=== PATIENT | female | born 1960 | race African-American/Black ===

== ENCOUNTER → 2017-10-16 | Outpatient (CLI) | payer BC ==
--- NOTE | 2017-10-21 14:46 | Pulmonary Function Test ---
Pulmonary Function Test Date of Procedure:: 10/16/17 INDICATION:: Pulmonary hypertension Referring Provider: Dr. Wells Director Packaging: Janel Thompson BOOK REVIEWER - Report Spirometry: FVC 3.28 L 101% FEV1 2.70 L 103% FEV1/FVC % 83 predicted 83 FEF 25-75% 3.19 L 112% Lung Volume: Total lung capacity 4.92 L 96% Vital capacity 3.25 L 101% Inspiratory capacity 2.80 L FRC N2 2.12 L 119% ERV 0.32 RV 1.67 L 89% RV/TLC % 34 predicted 36 Diffusion Capactity: Diffusion capacity 23.7 79% DLCO/VA 4.80 121% Impression: Normal spirometry. No restrictive ventilatory defect. No hyperinflation or air trapping. Normal decrease in diffusion capacity.
== END ==
LOC: RT 13:17
PROVIDERS: ATTEND Internal Medicine Rheumatology
DX: I27.0 Primary pulmonary hypertension (principal); M35.9 Systemic involvement of connective tissue, unspecified; M06.4 Inflammatory polyarthropathy; E66.01 Morbid (severe) obesity due to excess calories; G47.33 Obstructive sleep apnea (adult) (pediatric); M51.9 Unspecified thoracic, thoracolumbar and lumbosacral intervertebral disc disorder; L93.1 Subacute cutaneous lupus erythematosus
CPT/HCPCS: 94010; 94727; 94729

== ENCOUNTER → 2017-10-23 | Outpatient (CLI) | payer BC ==
--- NOTE | 2017-10-23 12:31 | XCELERA REPORT ---
[address] [address] Transthoracic Echocardiogram Report Name: SUSAN HARLEY Age: 57 yrs Gender: Female : 1960 Patient Status: Outpatient Patient Location: [facility] Study Date: 10/23/2017 09:22 AM Procedure: A complete two-dimensional transthoracic echocardiogram was performed (2D, M-mode, spectral and color flow Doppler). The study was technically adequate with some images being suboptimal in quality. Reason For Study: HTN Ordering Physician: TERRY HERNANDEZ Performed By: Mony Figueroa Interpretation Summary Best estimated RVSP is approximately 40-45 mm/Hg. The left ventricular ejection fraction is normal. Doppler measurements suggest pseudonormalized left ventricular relaxation, which is associated with grade II/IV or mild to moderate diastolic dysfunction The left ventricle is grossly normal size. There is mild concentric left ventricular hypertrophy. Wall motion cannot be accurately commented on, but no definite regional wall motion abnormalities noted. The right ventricle is mildly dilated. The right ventricle appears to be hypertrophied The right ventricular systolic function is normal. The right atrium is normal in size The left atrium is mildly dilated. There is a trace amount of mitral regurgitation There is no mitral valve stenosis. No aortic regurgitation is present. There is no aortic valve stenosis There is a mild amount of tricuspid regurgitation There is mild pulmonary hypertension by echo The aortic root is not well visualized but is probably normal size. The inferior vena cava was not well visualized There is no pericardial effusion. MMode/2D Measurements & Calculations RVDd: 3.6 cm LVIDd: 5.8 cm FS: 39.4 % Ao root diam: 2.9 cm IVSd: 0.96 cm LVIDs: 3.5 cm EDV(Teich): 166.1 ml Ao root area: 6.4 cm2 LVPWd: 1.1 cm ESV(Teich): 51.2 ml EF(Teich): 69.2 % LVOT diam: 1.7 cm LVOT area: 2.3 cm2 Doppler Measurements & Calculations MV E max araceli: MV dec slope: Ao V2 max: LV V1 max P.8 cm/sec 135.6 cm/sec 3.4 mmHg MV A max araceli: 389.6 cm/sec2 Ao max PG: LV V1 max: 66.1 cm/sec MV dec time: 0.22 sec7.4 mmHg 91.8 cm/sec MV E/A: 1.3 ELVIN(V,D): 1.5 cm2 PA V2 max: TR max araceli: 80.9 cm/sec 307.7 cm/sec PA max P.6 mmHg TR max P.9 mmHg Left Ventricle The left ventricle is grossly normal size. There is mild concentric left ventricular hypertrophy. The left ventricular ejection fraction is normal. Doppler measurements suggest pseudonormalized left ventricular relaxation, which is associated with grade II/IV or mild to moderate diastolic dysfunction. Wall motion cannot be accurately commented on, but no definite regional wall motion abnormalities noted. Right Ventricle The right ventricle is mildly dilated. The right ventricle appears to be hypertrophied. The right ventricular systolic function is normal. Atria The right atrium is normal in size. The left atrium is mildly dilated. Interarterial septum not well visualized and not well dopplered. Cannot comment on ASD/PFO presence. Mitral Valve The mitral valve is grossly normal. There is no mitral valve stenosis. There is a trace amount of mitral regurgitation. Aortic Valve The aortic valve is grossly normal. There is no aortic valve stenosis. No aortic regurgitation is present. Tricuspid Valve The tricuspid valve is not well visualized, but is grossly normal. There is no tricuspid stenosis. There is a mild amount of tricuspid regurgitation. There is mild pulmonary hypertension by echo. Best estimated RVSP is approximately 40-45 mm/Hg. Pulmonic Valve The pulmonic valve is not well visualized. Great Vessels The aortic root is not well visualized but is probably normal size. The inferior vena cava was not well visualized. Effusions There is no pericardial effusion. : TERRY HERNANDEZ > Idania Constantino
== END ==
LOC: SP 09:08
PROVIDERS: ATTEND Internal Medicine Rheumatology
DX: I10 Essential (primary) hypertension (principal); M35.9 Systemic involvement of connective tissue, unspecified; M06.4 Inflammatory polyarthropathy; E66.01 Morbid (severe) obesity due to excess calories; G47.33 Obstructive sleep apnea (adult) (pediatric)
CPT/HCPCS: 93306

== ENCOUNTER → 2019-10-13 | Outpatient (CLI) | payer BC ==
--- NOTE | 2019-10-14 21:24 | XCELERA REPORT ---
[address] [address] Transthoracic Echocardiogram Report Name: SUSAN HARLEY Age: 59 yrs Gender: Female : 1960 Patient Status: Outpatient Patient Location: [facility] Study Date: 10/13/2019 02:03 PM Height: 65 in Weight: 300 lb BSA: 2.4 m2 Procedure: A two-dimensional transthoracic echocardiogram with color flow and Doppler was performed. Study Quality: Fair. Reason For Study: PULMONARY HTN History: PULMONARY HTN. Ordering Physician: TERRY HERNANDEZ Performed By: Zoran Yung Interpretation Summary The left ventricle is normal in size. LV EF is 65% Left ventricular systolic function is normal. There is normal left ventricular wall thickness. Doppler measurements suggest impaired left ventricular relaxation, which is associated with grade I/IV or mild diastolic dysfunction There is no thrombus. No ASD ,VSD , or PFO seen. The right ventricle is normal in size and function. The right ventricle is not well visualized secondary to technical limitations The right atrium is normal. The left atrial size is normal. There is no evidence of mitral valve prolapse. There is no vegetation seen on the mitral valve. There is no mitral valve stenosis. There is a trace amount of mitral regurgitation There is no aortic valve stenosis There is no LVOT obstruction. No aortic regurgitation is present. There is no aortic valvular vegetation. There is no tricuspid stenosis. There is a trace amount of tricuspid regurgitation Upper normal RVSP to early mild pulmonary hypertension.RVSP is 28 to 33 mm of Hg , with RA mean of 5 to 10. There is no pulmonic valvular stenosis. There is no pulmonic valvular regurgitation. The aortic root is normal size. The inferior vena cava appeared normal and decreased > 50% with respiration (RAP 5-10 mmHg) There is no pericardial effusion. MMode/2D Measurements & Calculations RVDd: 3.3 cm LVIDd: 4.9 cm FS: 35.5 % Ao root diam: 4.0 cm IVSd: 1.3 cm LVIDs: 3.2 cm EDV(Teich): 114.3 ml Ao root area: 12.5 cm2 LVPWd: 1.3 cm ESV(Teich): 40.3 ml LA dimension: 4.0 cm EF(Teich): 64.8 % Doppler Measurements & Calculations MV E max araceli: MV P1/2t max araceli: Ao V2 max: LV V1 max P.0 cm/sec 80.1 cm/sec 108.6 cm/sec 4.6 mmHg MV A max araceli: MV P1/2t: 54.0 msec Ao max P.7 mmHgLV V1 max: 106.6 cm/sec MVA(P1/2t): 4.1 cm2 107.6 cm/sec MV E/A: 0.72 MV dec slope: 434.9 cm/sec2 MV dec time: 0.21 sec PA V2 max: TR max araceli: MV P1/2t-pr_phl: 81.9 cm/sec 237.8 cm/sec 54.0 msec PA max P.7 mmHgTR max P.6 mmHg Left Ventricle The left ventricle is normal in size. There is normal left ventricular wall thickness. LV EF is 65%. Left ventricular systolic function is normal. Doppler measurements suggest impaired left ventricular relaxation, which is associated with grade I/IV or mild diastolic dysfunction. The left ventricular wall motion is normal. There is no thrombus. No ASD ,VSD , or PFO seen. Right Ventricle The right ventricle is normal in size and function. The right ventricle is not well visualized secondary to technical limitations. Atria The right atrium is normal. The left atrial size is normal. Mitral Valve There is no evidence of mitral valve prolapse. There is no vegetation seen on the mitral valve. There is no mitral valve stenosis. There is a trace amount of mitral regurgitation. Aortic Valve There is no aortic valvular vegetation. There is no aortic valve stenosis. There is no LVOT obstruction. No aortic regurgitation is present. Tricuspid Valve There is no tricuspid stenosis. There is a trace amount of tricuspid regurgitation. Upper normal RVSP to early mild pulmonary hypertension.RVSP is 28 to 33 mm of Hg , with RA mean of 5 to 10. Pulmonic Valve There is no pulmonic valvular stenosis. There is no pulmonic valvular regurgitation. Great Vessels The aortic root is normal size. The inferior vena cava appeared normal and decreased > 50% with respiration (RAP 5-10 mmHg). Effusions There is no pericardial effusion. : TERRY HERNANDEZ Lakshmi
== END ==
LOC: SP 13:37
PROVIDERS: ATTEND Internal Medicine Rheumatology
DX: I27.0 Primary pulmonary hypertension (principal)
CPT/HCPCS: 93306

== ENCOUNTER → 2019-11-04 | Outpatient (CLI) | payer BC | LOC: RT 16:03 | PROVIDERS: ATTEND Internal Medicine Rheumatology | DX: J84.9 Interstitial pulmonary disease, unspecified (principal) | CPT/HCPCS: 94010; 94729 ==